=== PATIENT | male | born 1950 | race Caucasian/White ===

== ENCOUNTER → 2017-08-17 | Outpatient (CLI) | payer OTHER, MEDICARE ==
[2017-08-17 12:40] LABS: BASO % 0.7 %; BASO ABS # 0.05 K/uL (0-0.2); EOS ABS # 0.15 K/uL (0-0.5); HEMATOCRIT 42.5 % (42-52); HEMOGLOBIN 14.8 g/dL (14.0-18.0); IG# 0.04 K/uL (0.00-0.02); LYMPH % 24.9 %; LYMPH ABS # 1.84 K/uL (1.2-3.4); MEAN CELL VOLUME 88.9 fL (80-100); MEAN CORPUSCULAR HGB CONC 34.8 g/dl (32-36); MEAN PLATELET VOLUME 9.8 fL (7.4-10.4); MONO % 12.2 %; NEUT % 59.7 %; PLATELET COUNT 226 K/uL (130-400); RED CELL DISTRIBUTION WIDTH CV 12.3 % (11.5-14.5); RED CELL DISTRIBUTION WIDTH SD 39.8 fL (36.4-46.3); WHITE BLOOD COUNT 7.38 K/uL (4.8-10.8)
[2017-08-17 13:10] LABS: HEMOGLOBIN A1C 6.4 % (4.5-5.6)
[2017-08-17 13:12] LABS: BLOOD UREA NITROGEN 18 mg/dl (7-18); CALCIUM 8.9 mg/dl (8.5-10.1); CARBON DIOXIDE 29 mmol/L (21-32); CREATININE 1.01 mg/dl (0.60-1.40); GLUCOSE 163 mg/dl (70-99); POTASSIUM 3.8 mmol/L (3.5-5.1); SODIUM 136 mmol/L (136-145)
== END | disposition home or self-care (01) ==
LOC: C.LABMFLN 10:38
PROVIDERS: ATTEND Family Medicine
DX: I10 Essential (primary) hypertension (principal); R73.9 Hyperglycemia, unspecified

== ENCOUNTER → 2017-09-02 | Outpatient (CLI) | payer OTHER, MEDICARE ==
--- NOTE | 2017-09-02 14:42 | DIAGNOSTIC IMAGING REPORT ---
L KNEE 4 OR MORE CLINICAL HISTORY: 67 years-old Male presenting with LEFT KNEE PAIN. TECHNIQUE: Bilateral frontal view of the knees in standing position as well as sunrise, tunnel, and lateral views of the left knee were obtained. COMPARISON: None. FINDINGS: Degenerative changes in the medial and lateral compartments of the right knee suspected. Joint space in the right knee preserved. The left knee demonstrates no significant joint space loss. Minimal osteophytosis of the patellofemoral compartment. No acute osseous injury. Small knee joint effusion may be present on the left. Enthesophyte at the insertion of the patellar tendon noted. IMPRESSION: 1. Minimal degenerative changes in the patellofemoral compartment of the left knee. 2. Small left knee joint effusion. 3. No acute osseous injury. 4. Suspected degenerative change in the medial and lateral compartments of the right knee. Electronically signed by: Kenn Garcia M.D. 09/02/2017 2:41 PM Dictated Date/Time: 09/02/2017 2:39 PM
== END | disposition home or self-care (01) ==
LOC: C.RDSM 14:30
PROVIDERS: ATTEND Physician Assistant
DX: M17.12 Unilateral primary osteoarthritis, left knee (principal)

== ENCOUNTER → 2017-09-22 | Outpatient (CLI) | payer OTHER, MEDICARE ==
[2017-09-22 12:50] LABS: HEMOGLOBIN A1C 6.9 % (4.5-5.6)
== END | disposition home or self-care (01) ==
LOC: C.LABMFLN 09:13
DX: E11.9 Type 2 diabetes mellitus without complications (principal)